=== PATIENT | female | born 1935 | race Caucasian/White ===

== ENCOUNTER 2020-06-20 17:41 | Inpatient (IN) | payer MEDICARE, BC ==
[2020-06-20 17:56] VITALS: BMI 26.2
[2020-06-20] MEDS ORDERED: Guaifenesin DM 100-10/5 ML UDCUP PO PRN (19:54)
[2020-06-20] MEDS ORDERED: Acetaminophen 325 MG TAB PO PRN (19:54)
[2020-06-20] MEDS ORDERED: Ondansetron PF 4 MG/2 ML Vial IVP PRN (19:54)
[2020-06-20] MEDS ORDERED: Senokot S 8.6-50 MG TAB PO PRN (19:54)
[2020-06-20] MEDS ORDERED: Calcium Carbonate 500 MG ChewTAB PO PRN (19:54)
[2020-06-20] MEDS ORDERED: Sodium Chloride 0.9% 1,000 ML IV SCH (20:00)
[2020-06-20] MEDS ORDERED: Sodium Chloride 0.9% 500 ML IV SCH (20:00)
[2020-06-20 20:53] LABS: Lactic Acid 2.2 mmol/L (0.5-2.2)
[2020-06-21] MEDS ORDERED: Lorazepam 2 MG/ML VIAL SLOW IVP SCH (00:45)
[2020-06-21 01:01] LABS: SARS-CoV-2 PCR by NAA Not Detected (NotDetected)
[2020-06-21 06:30] LABS: #Eosinphils 0.1 10x3/uL (0.0-0.5); #Monocytes 0.7 10x3/uL (0.0-1.1); #Neutrophils 3.2 10x3/uL (1.5-8.4); %Basophils 0.7 % (0.0-2.0); %Eosinophils 1.6 % (0.0-6.0); %Monocytes 11.4 % (0.0-10.0); %Neutrophils 54.6 % (40.0-75.0); Hemoglobin 11.9 g/dL (12.0-15.5); Mean Corpuscular Hemoglobin 30.1 pg (27.0-33.0); Mean Corpuscular Volume 91.2 fl (81.6-98.3); Mean Platelet Volume 10.1 fl (7.4-10.4); Platelet Count 180 10x3/uL (150-450); RBC Distribution Width 13.2 % (11.5-14.5); Red Blood Cell (RBC) Count 3.96 10x6/uL (3.90-5.03); White Blood Cell (WBC) Count 5.8 10x3/uL (3.5-10.5)
[2020-06-21] MEDS: Cilostazol 100 MG TAB PO SCH ×2 (06:38→16:07)
[2020-06-21] MEDS: Levothyroxine Sodium 25 MCG TAB PO SCH (06:38)
[2020-06-21 09:04] LABS: Anion Gap 13 mmol/L (10-20); BUN (Urea Nitrogen) 16 mg/dL (9.8-20.1); Calc. Creatinine Clearance 60 mL/min (70-130); Calcium 8.9 mg/dL (7.8-10.44); Carbon Dioxide 24 mmol/L (23-31); Chloride 107 mmol/L (98-107); Glucose 112 mg/dL (83-110); Potassium 3.6 mmol/L (3.5-5.1); Sodium 140 mmol/L (136-145)
[2020-06-21] MEDS: Donepezil HCl 5 MG TAB PO SCH (09:26)
[2020-06-21] MEDS: Magnesium Oxide 400 MG TAB PO SCH (09:26)
[2020-06-21] MEDS: Calcium Carbonate 600 MG + Vit D TAB PO SCH ×2 (09:26→16:07)
[2020-06-21] MEDS: Aspirin 81 mg Enteric Coated Tablet PO SCH (09:26)
[2020-06-21] MEDS: Clopidogrel Bisulfate 75 MG TAB PO SCH (09:26)
[2020-06-21] MEDS: Enoxaparin Sodium 40 MG/0.4 ML SYRINGE SC SCH (09:26)
[2020-06-21] MEDS: Atorvastatin Calcium 20 MG TAB PO SCH (09:26)
[2020-06-21] MEDS ORDERED: Adenosine 6 MG/2 ML VIAL ONE (10:00)
[2020-06-21] MEDS: Lorazepam 2 MG/ML VIAL SLOW IVP PRN ×2 (10:16→16:38)
[2020-06-21 11:13] LABS: Hemoglobin A1c 6.2 % (4.0-6.0)
[2020-06-21] MEDS ORDERED: Sodium Chloride 0.9% 500 ML IV SCH (11:50)
[2020-06-21] MEDS ORDERED: Adenosine 6 MG/2 ML VIAL IVP SCH (11:50)
[2020-06-21] MEDS ORDERED: Potassium Chloride 20 MEQ TAB PO SCH (14:00)
[2020-06-21] MEDS: Carvedilol 6.25 MG TAB PO SCH (16:07)
[2020-06-22 05:22] LABS: ALT (SGPT) 14 U/L (8-55); AST (SGOT) 20 U/L (5-34); Albumin 3.4 g/dL (3.4-4.8); Alkaline Phosphatase 54 U/L (40-110); Anion Gap 12 mmol/L (10-20); BUN (Urea Nitrogen) 11 mg/dL (9.8-20.1); Bilirubin, Total 1.1 mg/dL (0.2-1.2); Calc. Creatinine Clearance 64 mL/min (70-130); Calcium 8.8 mg/dL (7.8-10.44); Carbon Dioxide 21 mmol/L (23-31); Chloride 109 mmol/L (98-107); Globulin 2.7 g/dL (2.4-3.5); Glucose 98 mg/dL (83-110); Magnesium 1.6 mg/dL (1.6-2.6); Potassium 4.1 mmol/L (3.5-5.1); Protein, Total 6.1 g/dL (5.8-8.1); Sodium 138 mmol/L (136-145)
[2020-06-22] MEDS: Levothyroxine Sodium 25 MCG TAB PO SCH (06:08)
[2020-06-22] MEDS: Cilostazol 100 MG TAB PO SCH ×2 (06:38→16:38)
[2020-06-22] MEDS: Carvedilol 6.25 MG TAB PO SCH ×2 (09:30→16:40)
[2020-06-22] MEDS: Calcium Carbonate 600 MG + Vit D TAB PO SCH ×2 (09:30→16:40)
[2020-06-22] MEDS: Enoxaparin Sodium 40 MG/0.4 ML SYRINGE SC SCH (09:30)
[2020-06-22] MEDS: Amlodipine 5 MG TAB PO SCH (09:30)
[2020-06-22] MEDS: Aspirin 81 mg Enteric Coated Tablet PO SCH (09:30)
[2020-06-22] MEDS: Magnesium Oxide 400 MG TAB PO SCH (09:30)
[2020-06-22] MEDS: Clopidogrel Bisulfate 75 MG TAB PO SCH (09:31)
[2020-06-22] MEDS: Donepezil HCl 5 MG TAB PO SCH (09:31)
[2020-06-22] MEDS: Atorvastatin Calcium 20 MG TAB PO SCH (09:31)
[2020-06-23] MEDS: Levothyroxine Sodium 25 MCG TAB PO SCH (05:33)
[2020-06-23] MEDS: Cholecalciferol 1,000 UNITS (25 MCG) TAB PO SCH (08:51)
[2020-06-23] MEDS: Amlodipine 5 MG TAB PO SCH (08:51)
[2020-06-23] MEDS: Aspirin 81 mg Enteric Coated Tablet PO SCH (08:51)
[2020-06-23] MEDS: Magnesium Oxide 400 MG TAB PO SCH (08:51)
[2020-06-23] MEDS: Carvedilol 6.25 MG TAB PO SCH ×2 (08:51→17:11)
[2020-06-23] MEDS: Atorvastatin Calcium 20 MG TAB PO SCH (08:51)
[2020-06-23] MEDS: Enoxaparin Sodium 40 MG/0.4 ML SYRINGE SC SCH (08:52)
[2020-06-23] MEDS: Clopidogrel Bisulfate 75 MG TAB PO SCH (08:52)
[2020-06-23] MEDS: Calcium Carbonate 600 MG + Vit D TAB PO SCH ×2 (08:52→17:11)
[2020-06-23] MEDS: Cilostazol 100 MG TAB PO SCH ×2 (08:52→17:11)
[2020-06-23] MEDS: Donepezil HCl 5 MG TAB PO SCH (08:52)
[2020-06-24] MEDS: Levothyroxine Sodium 25 MCG TAB PO SCH (05:45)
[2020-06-24 06:00] LABS: #Eosinphils 0.2 10x3/uL (0.0-0.5); #Monocytes 0.6 10x3/uL (0.0-1.1); #Neutrophils 2.8 10x3/uL (1.5-8.4); %Basophils 0.6 % (0.0-2.0); %Eosinophils 3.2 % (0.0-6.0); %Lymphocytes 31.2 % (18.0-47.0); %Monocytes 11.5 % (0.0-10.0); %Neutrophils 53.1 % (40.0-75.0); Mean Corpuscular HGB CONC 33.4 g/dL (32.0-36.0); Mean Corpuscular Hemoglobin 30.5 pg (27.0-33.0); Mean Corpuscular Volume 91.1 fl (81.6-98.3); Mean Platelet Volume 10.2 fl (7.4-10.4); Platelet Count 198 10x3/uL (150-450); RBC Distribution Width 12.8 % (11.5-14.5); Red Blood Cell (RBC) Count 3.94 10x6/uL (3.90-5.03); White Blood Cell (WBC) Count 5.3 10x3/uL (3.5-10.5)
[2020-06-24 06:04] LABS: Anion Gap 15 mmol/L (10-20); BUN (Urea Nitrogen) 16 mg/dL (9.8-20.1); Calc. Creatinine Clearance 52 mL/min (70-130); Calcium 9.2 mg/dL (7.8-10.44); Carbon Dioxide 23 mmol/L (23-31); Chloride 103 mmol/L (98-107); Glucose 133 mg/dL (83-110); Potassium 4.3 mmol/L (3.5-5.1); Sodium 137 mmol/L (136-145)
[2020-06-24] MEDS: Atorvastatin Calcium 20 MG TAB PO SCH (08:51)
[2020-06-24] MEDS: Amlodipine 5 MG TAB PO SCH (08:51)
[2020-06-24] MEDS: Carvedilol 6.25 MG TAB PO SCH ×2 (08:51→16:56)
[2020-06-24] MEDS: Clopidogrel Bisulfate 75 MG TAB PO SCH (08:51)
[2020-06-24] MEDS: Cholecalciferol 1,000 UNITS (25 MCG) TAB PO SCH (08:51)
[2020-06-24] MEDS: Donepezil HCl 5 MG TAB PO SCH (08:51)
[2020-06-24] MEDS: Enoxaparin Sodium 40 MG/0.4 ML SYRINGE SC SCH (08:51)
[2020-06-24] MEDS: Aspirin 81 mg Enteric Coated Tablet PO SCH (08:51)
[2020-06-24] MEDS: Cilostazol 100 MG TAB PO SCH ×2 (08:51→16:56)
[2020-06-24] MEDS: Magnesium Oxide 400 MG TAB PO SCH (08:51)
[2020-06-24] MEDS: Calcium Carbonate 600 MG + Vit D TAB PO SCH ×2 (08:51→16:56)
[2020-06-24] MEDS: Lorazepam 2 MG/ML VIAL SLOW IVP PRN (15:58)
[2020-06-25] MEDS: Levothyroxine Sodium 25 MCG TAB PO SCH (05:09)
[2020-06-25] MEDS: Clopidogrel Bisulfate 75 MG TAB PO SCH (09:57)
[2020-06-25] MEDS: Cholecalciferol 1,000 UNITS (25 MCG) TAB PO SCH (09:57)
[2020-06-25] MEDS: Amlodipine 5 MG TAB PO SCH (09:57)
[2020-06-25] MEDS: Calcium Carbonate 600 MG + Vit D TAB PO SCH (09:57)
[2020-06-25] MEDS: Cilostazol 100 MG TAB PO SCH (09:57)
[2020-06-25] MEDS: Donepezil HCl 5 MG TAB PO SCH (09:58)
[2020-06-25] MEDS: Atorvastatin Calcium 20 MG TAB PO SCH (09:58)
[2020-06-25] MEDS: Magnesium Oxide 400 MG TAB PO SCH (09:58)
[2020-06-25] MEDS: Aspirin 81 mg Enteric Coated Tablet PO SCH (09:58)
[2020-06-25] MEDS: Carvedilol 6.25 MG TAB PO SCH (09:58)
[2020-06-25] MEDS: Enoxaparin Sodium 40 MG/0.4 ML SYRINGE SC SCH (09:59)
[2020-06-25 13:51] VITALS: TEMP 98
[2020-06-25 13:55] VITALS: BP 177/73
== END 2020-06-25 15:30 | disposition home or self-care (01) | DRG 309 ==
LOC: INTOOBSV 17:41 → CSHTELE 17:41 → OBSVTOIN 06-22 12:26
PROVIDERS: ADMIT Internal Medicine; ATTEND Family Medicine
DX: I47.1 Supraventricular tachycardia (principal); N17.9 Acute kidney failure, unspecified; S22.31XA Fracture of one rib, right side, initial encounter for closed fracture; E87.2 Acidosis; Z20.822 Contact with and (suspected) exposure to COVID-19; I73.9 Peripheral vascular disease, unspecified; F03.90 Unspecified dementia, unspecified severity, without behavioral disturbance, psychotic disturbance, mood disturbance, and anxiety; E11.22 Type 2 diabetes mellitus with diabetic chronic kidney disease; I12.9 Hypertensive chronic kidney disease with stage 1 through stage 4 chronic kidney disease, or unspecified chronic kidney disease; N18.31 Chronic kidney disease, stage 3a; E11.51 Type 2 diabetes mellitus with diabetic peripheral angiopathy without gangrene; E11.65 Type 2 diabetes mellitus with hyperglycemia; E78.5 Hyperlipidemia, unspecified; E86.0 Dehydration; I25.10 Atherosclerotic heart disease of native coronary artery without angina pectoris; E55.9 Vitamin D deficiency, unspecified; E03.9 Hypothyroidism, unspecified; Z96.652 Presence of left artificial knee joint; Z90.49 Acquired absence of other specified parts of digestive tract; Z79.01 Long term (current) use of anticoagulants; Z79.82 Long term (current) use of aspirin; Z95.820 Peripheral vascular angioplasty status with implants and grafts; Z79.899 Other long term (current) drug therapy; Z88.1 Allergy status to other antibiotic agents; Z90.710 Acquired absence of both cervix and uterus; Z88.2 Allergy status to sulfonamides; Z88.8 Allergy status to other drugs, medicaments and biological substances; Z79.890 Hormone replacement therapy; Z85.118 Personal history of other malignant neoplasm of bronchus and lung; Z88.5 Allergy status to narcotic agent
CPT/HCPCS: 36415; 36416; 70450; 80048; 80053; 82306; 83036; 83605; 83735; 84145; 84443; 84484; 85025; 87086; 87635; 93005; 93010; 93306; 93880; 96372; 96374; 96375; 96376; G0378; J0153; J1650; J2060; U0003; U0005